=== PATIENT | female | born 2000 | race Two or more races ===

== ENCOUNTER 2023-12-03 16:49 | Inpatient (IN) | payer OTHER ==
[~2023-12-03] VITALS: Ht 162.6 cm; Wt 74.4 kg
[2023-12-03] MEDS ORDERED: 0.9 % SODIUM CHLORIDE 1,000 ML IV ONE (17:15)
[2023-12-03 17:44] LABS: HEMATOCRIT 28.6 % (36.0-45.00); HEMOGLOBIN 9.3 g/dL (12.0-15.00); MEAN CELL VOLUME 73.9 fL (80.00-100.00); MEAN CORPUSCULAR HGB CONC 32.5 g/dl (32.0-36.0); PLATELET COUNT 203 K/uL (150-450); RED BLOOD COUNT 3.87 M/uL (4.00-6.00); RED CELL DISTRIBUTION WIDTH 15.2 % (11.5-14.5)
[2023-12-03 17:58] LABS: INR 0.94; PARTIAL THROMBOPLASTIN TIME 28.1 SECONDS (22.0-34.0); PROTHROMBIN TIME 10.3 SECONDS (9.0-11.5)
[2023-12-03 18:17] LABS: ALBUMIN 2.8 gm/dL (3.4-5.0); BILIRUBIN TOTAL 0.28 mg/dL (0.3-1.2); CALCIUM 8.1 mg/dL (8.5-10.1); CREATININE SERUM 0.44 mg/dL (0.55-1.02); GFR 178.81; GLOBULINA 4.6 G/DL (2.4-3.5); POTASSIUM 3.47 mEq/L (3.5-5.1); TOTAL PROTEIN 7.4 gm/dL (6.4-8.2)
[2023-12-03 18:58] LABS: PH,URINE 6.5 (5.0-8.0); URINE APPEARANCE Cloudy; URINE BILIRRUBIN Negative (NEGATIVE); URINE BLOOD Negative; URINE COLOR Yellow; URINE GLUCOSE Negative (NEGATIVE); URINE KETONE 15 (NEGATIVE); URINE LEUKOCYTE Large; URINE NITRATE Negative; URINE PROTEIN Negative (NEGATIVE); URINE UROBILINOGEN 0.2 E.U./dl
[2023-12-03 19:04] LABS: URINE EPITHELIAL CELLS 195.8 uL (0.0-38.8); URINE RBC 2.5 uL (0.0-20.8); URINE WBC 657.7 uL (0.0-23.2)
[2023-12-03 19:19] LABS: URINE BACTERIA > 9821.5 uL (0.0-1933); URINE CAST 0.45 uL (0.0-1.40)
[2023-12-03 20:05] VITALS: BP 100/64
[2023-12-03] MEDS ORDERED: SOD FERRIC GLUC COMPLX/SUCROSE 62.5 MG/5 ML AMPUL IV SCH (21:11)
[2023-12-03] MEDS ORDERED: FAMOtidine 20 MG TABLET PO SCH (21:12)
[2023-12-03] MEDS ORDERED: IRON/V.C/V.B12/FOLIC A/VIT. E 1 CAPL CAPLET PO SCH (21:15)
[2023-12-03] MEDS ORDERED: RINGERS SOLUTION,LACTATED 1,000 ML IV SCH (21:15)
[2023-12-03] MEDS ORDERED: CEFAZOLIN SODIUM 1,000 MG VIAL IV SCH (21:15)
[2023-12-03 23:37] VITALS: BP 95/56
[2023-12-04 03:09] VITALS: BP 103/60
[2023-12-04] MEDS ORDERED: CEFAZOLIN SODIUM 1,000 MG VIAL ONE (04:55)
[2023-12-04 06:29] VITALS: BP 90/51; O2SAT 98
[2023-12-04 07:07] LABS: MEAN CELL VOLUME 73.5 fL (80.00-100.00); MEAN CORPUSCULAR HGB CONC 33.4 g/dl (32.0-36.0); PLATELET COUNT 166 K/uL (150-450); RED BLOOD COUNT 3.17 M/uL (4.00-6.00); RED CELL DISTRIBUTION WIDTH 15.4 % (11.5-14.5)
[2023-12-04] MEDS ORDERED: IRON/V.C/V.B12/FOLIC A/VIT. E 1 CAPL CAPLET PO ONE (07:25)
[2023-12-04 08:43] LABS: HEMATOCRIT 23.3 % (36.0-45.00); HEMOGLOBIN 7.8 g/dL (12.0-15.00); MEAN CORPUSCULAR HEMOGLOBIN 24.6 pg (27.00-32.0)
[2023-12-04 09:46] LABS: MEAN CELL VOLUME 73.6 fL (80.00-100.00); MEAN CORPUSCULAR HGB CONC 32.7 g/dl (32.0-36.0); PLATELET COUNT 164 K/uL (150-450); RED BLOOD COUNT 3.53 M/uL (4.00-6.00); RED CELL DISTRIBUTION WIDTH 15.1 % (11.5-14.5)
[2023-12-04 09:47] LABS: HEMOGLOBIN 8.5 g/dL (12.0-15.00)
[2023-12-04 13:00] VITALS: BP 111/69
[2023-12-04 18:53] VITALS: BP 100/60
[2023-12-05] VITALS: BP 110/70
[2023-12-05 08:38] VITALS: BP 100/60
== END 2023-12-05 09:46 | disposition home or self-care (01) | DRG 833 ==
LOC: ER 16:50 → LDR 21:05 → OB/GYN 21:05
PROVIDERS: General Practice; Obstetrics & Gynecology; ADMIT Obstetrics & Gynecology Gynecology; ATTEND Obstetrics & Gynecology Gynecology
PROC: 4A1HXCZ Monitoring of Products of Conception, Cardiac Rate, External Approach (ICD-10-PCS; principal; 2023-12-03)
DX: O99.013 Anemia complicating pregnancy, third trimester (principal); D64.9 Anemia, unspecified; Z3A.32 32 weeks gestation of pregnancy; Z20.822 Contact with and (suspected) exposure to COVID-19

== ENCOUNTER 2024-01-14 15:33 | Outpatient (CLI) | payer OTHER | END 2024-01-14 16:43 | disposition home or self-care (01) | LOC: NST 15:33 | PROVIDERS: ATTEND Obstetrics & Gynecology Maternal & Fetal Medicine | DX: Z34.83 Encounter for supervision of other normal pregnancy, third trimester (principal) ==

== ENCOUNTER 2024-01-19 16:13 | Emergency (ER) | payer OTHER ==
[~2024-01-19] VITALS: Ht 162.6 cm; Wt 78.9 kg
[2024-01-19] MEDS ORDERED: LACTOBACILLUS ACIDOPHILUS 1 CAP CAP PO STA (17:37)
[2024-01-19] MEDS ORDERED: RINGERS SOLUTION,LACTATED 1,000 ML IV STA (18:00)
[2024-01-19 18:30] LABS: HEMATOCRIT 31.4 % (36.0-45.00); HEMOGLOBIN 10.8 g/dL (12.0-15.00); MEAN CELL VOLUME 75.2 fL (80.00-100.00); MEAN CORPUSCULAR HGB CONC 34.5 g/dl (32.0-36.0); PLATELET COUNT 196 K/uL (150-450); RED BLOOD COUNT 4.18 M/uL (4.00-6.00)
[2024-01-19 18:32] LABS: RED CELL DISTRIBUTION WIDTH 20.8 % (11.5-14.5)
[2024-01-19 18:37] LABS: ALBUMIN 2.7 gm/dL (3.4-5.0); BILIRUBIN TOTAL 0.33 mg/dL (0.3-1.2); CALCIUM 8.6 mg/dL (8.5-10.1); CREATININE SERUM 0.53 mg/dL (0.55-1.02); GFR 144.25; GLOBULINA 4.3 G/DL (2.4-3.5); POTASSIUM 4.16 mEq/L (3.5-5.1)
== END 2024-01-19 20:02 | disposition home or self-care (01) ==
LOC: ER 16:14
PROVIDERS: General Practice
DX: R19.7 Diarrhea, unspecified (principal)

== ENCOUNTER 2024-01-23 13:33 | Outpatient (CLI) | payer OTHER | END 2024-01-23 14:36 | disposition home or self-care (01) | LOC: NST 13:33 | PROVIDERS: ATTEND Obstetrics & Gynecology Maternal & Fetal Medicine | DX: Z34.83 Encounter for supervision of other normal pregnancy, third trimester (principal) ==

== ENCOUNTER 2024-01-29 09:25 | Inpatient (IN) | payer OTHER ==
[~2024-01-29] VITALS: Ht 162.6 cm; Wt 77.1 kg
[2024-01-29] VITALS (8 sets, daily range): BP systolic 118–144; BP diastolic 51–90
[2024-01-29] MEDS ORDERED: OXYTOCIN 12,500 ML IV SCH (10:15)
[2024-01-29] MEDS ORDERED: RINGERS SOLUTION,LACTATED 1,000 ML IV SCH (10:15)
[2024-01-29 10:22] LABS: HEMATOCRIT 31.6 % (36.0-45.00); HEMOGLOBIN 10.6 g/dL (12.0-15.00); MEAN CELL VOLUME 74.8 fL (80.00-100.00); MEAN CORPUSCULAR HEMOGLOBIN 25.1 pg (27.00-32.0); MEAN CORPUSCULAR HGB CONC 33.6 g/dl (32.0-36.0); PLATELET COUNT 166 K/uL (150-450); RED BLOOD COUNT 4.23 M/uL (4.00-6.00); RED CELL DISTRIBUTION WIDTH 20.9 % (11.5-14.5)
[2024-01-29 10:46] LABS: INR 0.94; PARTIAL THROMBOPLASTIN TIME 27.3 SECONDS (22.0-34.0); PROTHROMBIN TIME 10.3 SECONDS (9.0-11.5)
[2024-01-29 11:20] LABS: ALBUMIN 2.8 gm/dL (3.4-5.0); BILIRUBIN TOTAL 0.22 mg/dL (0.3-1.2); CALCIUM 8.8 mg/dL (8.5-10.1); CREATININE SERUM 0.41 mg/dL (0.55-1.02); GFR 193.99; GLOBULINA 3.8 G/DL (2.4-3.5); POTASSIUM 4.27 mEq/L (3.5-5.1); TOTAL PROTEIN 6.6 gm/dL (6.4-8.2)
[2024-01-29] MEDS ORDERED: OXYTOCIN 500 ML IV SCH (11:45)
[2024-01-29] MEDS ORDERED: MORPHINE SULFATE 4 MG/ML CARTRIDGE IV PRN (15:45)
[2024-01-29] MEDS ORDERED: MORPHINE SULFATE 4 MG/ML CARTRIDGE IV ONE (17:45)
[2024-01-29] MEDS ORDERED: OXYTOCIN 1,000 ML IV SCH (19:45)
[2024-01-29] MEDS ORDERED: CHLORHEXIDINE GLUCONATE 120 ML BOTTLE TOP SCH (19:45)
[2024-01-29] MEDS ORDERED: IBUprofen 400 MG TABLET PO PRN (19:45)
[2024-01-30] MEDS ORDERED: ERYTHROMYCIN BASE OPHT 1GM EACH TUBE OP ONE (00:30)
[2024-01-30] MEDS ORDERED: METHYLERGONOVINE MALEATE 0.2 MG/ML AMPUL IM ONE (00:30)
[2024-01-30 01:21] VITALS: BP 128/68
[2024-01-30 03:22] VITALS: BP 118/77
[2024-01-30 07:02] LABS: HEMATOCRIT 29.4 % (36.0-45.00); HEMOGLOBIN 9.7 g/dL (12.0-15.00); MEAN CELL VOLUME 75.6 fL (80.00-100.00); PLATELET COUNT 164 K/uL (150-450); RED BLOOD COUNT 3.89 M/uL (4.00-6.00); RED CELL DISTRIBUTION WIDTH 20.1 % (11.5-14.5)
[2024-01-30 08:48] VITALS: BP 123/68
[2024-01-30] MEDS ORDERED: IRON FUM,PS/FOLIC/BCOMP,C NO.9 1 CAP CAPSULE PO SCH (09:00)
[2024-01-30 16:09] VITALS: BP 104/68
[2024-01-31 01:04] VITALS: BP 114/68
[2024-01-31 05:10] VITALS: BP 106/68
[2024-01-31] MEDS ORDERED: BENZOCAINE/MENTHOL 90 ML BOTTLE TOP SCH (09:40)
[2024-01-31 10:11] VITALS: BP 106/68
== END 2024-01-31 13:24 | disposition home or self-care (01) | DRG 807 ==
LOC: LDR 09:25 → OB/GYN 21:56
PROVIDERS: Obstetrics & Gynecology; ADMIT Obstetrics & Gynecology Maternal & Fetal Medicine; ATTEND Obstetrics & Gynecology Maternal & Fetal Medicine
PROC: 10E0XZZ Delivery of Products of Conception, External Approach (ICD-10-PCS; principal; 2024-01-29)
PROC: 0HQ9XZZ Repair Perineum Skin, External Approach (ICD-10-PCS; 2024-01-29)
PROC: 4A1HXCZ Monitoring of Products of Conception, Cardiac Rate, External Approach (ICD-10-PCS; 2024-01-29)
DX: O70.0 First degree perineal laceration during delivery (principal); Z37.0 Single live birth; Z3A.40 40 weeks gestation of pregnancy; Z20.822 Contact with and (suspected) exposure to COVID-19